=== PATIENT | female | born 1960 | race Caucasian/White ===

== ENCOUNTER 2019-04-10 11:49 | Day surgery (SDC) | payer BC ==
[~2019-04-10] VITALS: Ht 152.4 cm; Wt 82.0 kg
[~2019-04-10 11:49] MED LIST: ATOR80TA59 PO; CETI5SOL3 PO; ECOT81TA5 PO; ESCI5SOL3 PO; ESTR1TAB PO; LANS15CA PO; LEVO75TA4 PO; LR 1,000 ML IV ONE; PLAV1TAB2 PO; ceFAZolin SOD 1 GM in D5W MINI-BAG PLUS 50 ML IV ONE
[2019-04-10] MEDS ORDERED: LIDOCAINE 1% SDV INJ 30 ML VIAL As Ordered ONE (13:26)
[2019-04-10] MEDS ORDERED: PROPOFOL 200 MG/20 ML VIAL As Ordered ONE (13:30)
[2019-04-10] MEDS ORDERED: MIDAZOLAM INJ 2 MG/2 ML VIAL (J2250) As Ordered ONE (13:30)
[2019-04-10] MEDS ORDERED: ONDANSETRON 4MG/2ML VIAL (J2405) As Ordered ONE (13:30)
[2019-04-10] MEDS ORDERED: LIDOCAINE 2% INJ 100 MG/5 ML SDV (FOR ANES.) As Ordered ONE (13:30)
[2019-04-10] MEDS ORDERED: fentaNYL 100 MCG/2 ML INJECTION (J3010) As Ordered ONE (13:30)
--- NOTE | 2019-04-10 15:45 | RO ---
DATE OF PROCEDURE: 04/10/2019 PREOPERATIVE DIAGNOSIS: Cryptogenic stroke. POSTOPERATIVE DIAGNOSIS: Cryptogenic stroke. FINDINGS: Cryptogenic stroke. OPERATIVE PROCEDURE: Implantation of a Medtronic LINQ implantable loop recorder. SURGEON: Sylvester Brasher MD [employer]PER[employer] TRA[employer] [facility]FORMATION CENTER: None. ANESTHESIA: Lidocaine 1% local (3 mL)/monitored anesthetic care. SPECIMENS: None. ESTIMATED BLOOD LOSS: Less than 1 mL. BLOOD PRODUCTS REPLACED: None. DRAINS: None. COMPLICATIONS: None. DESCRIPTION OF OPERATION: The patient was prepped over the left anterior chest and sternum. Lidocaine 1% was used for local anesthetic. An incision approximately 1 cm in length was made with a #15 scalpel blade through the skin about 1 inch lateral to the left parasternal border at about the midpoint of the left parasternal border. The guide on the insertion tool was placed into the incision and advanced in approximately 45 degree left lateral/caudal direction keeping the guide parallel to the anterior chest wall. The insertion tool was rotated 180 degrees. The plunger was then used to advance the implantable loop recorder into the subcutaneous fat/breast tissue. The plunger was removed and then the insertion tool was removed. The initial R wave amplitude was 0.44 milliseconds. P waves were readily identified as well. Next, a single #2-0 Vicryl suture was used to approximate the deep layer of the incision. This resulted in excellent approximation of the skin edges. It had been in my initial plan to use a #4-0 Biosyn suture to approximate the subcuticular layer; however this was not necessary because the approximation was so good with the #2-0 Vicryl. Next, three layers of Dermabond was applied. Patient tolerated the procedure well without any immediate complications. The implantable loop recorder implanted was a Medtronic Reveal LINQ, model #LNQ11 with serial #[id number]. [facility]
[2019-04-10 15:50] VITALS: BP 132/59
== END 2019-04-10 16:10 | disposition home or self-care (01) ==
LOC: M SDC 11:49
PROVIDERS: ATTEND Internal Medicine Cardiovascular Disease
DX: I63.9 Cerebral infarction, unspecified (principal); E66.9 Obesity, unspecified; E78.00 Pure hypercholesterolemia, unspecified; E03.9 Hypothyroidism, unspecified; K21.9 Gastro-esophageal reflux disease without esophagitis; G43.909 Migraine, unspecified, not intractable, without status migrainosus; R42 Dizziness and giddiness; R20.2 Paresthesia of skin; I69.998 Other sequelae following unspecified cerebrovascular disease; Z79.899 Other long term (current) drug therapy; Z79.01 Long term (current) use of anticoagulants; Z90.710 Acquired absence of both cervix and uterus
CPT/HCPCS: 33285; C1764; J0690; J2250; J2405; J3010

== ENCOUNTER 2019-04-11 12:47 | Day surgery (SDC) | payer BC ==
[~2019-04-11] VITALS: Ht 152.4 cm; Wt 82.1 kg
[~2019-04-11 12:47] MED LIST changes: +LIDOCAINE 2% INJ 100 MG/5 ML SDV (FOR ANES.) As Ordered ONE; -LR 1,000 ML IV ONE; +PROPOFOL 200 MG/20 ML VIAL As Ordered ONE; -ceFAZolin SOD 1 GM in D5W MINI-BAG PLUS 50 ML IV ONE
[2019-04-11] MEDS: NS 1,000 ML IV SCH ×2 (13:30→13:38)
[2019-04-11] MEDS ORDERED: MIDAZOLAM INJ 2 MG/2 ML VIAL (J2250) As Ordered ONE ×2 (14:01→14:49)
[2019-04-11] MEDS ORDERED: MIDAZOLAM INJ 2 MG/2 ML VIAL (J2250) IV ONE ×2 (14:07→14:10)
[2019-04-11] MEDS ORDERED: LIDOCAINE VISCOUS 2% SOLN 15ML UDC As Ordered ONE (14:33)
[2019-04-11 14:45] VITALS: BP 130/61
--- NOTE | 2019-04-11 16:17 | T-ECHO ---
DATE OF PROCEDURE: 04/11/2019 REFERRING PHYSICIAN: Dr. Sylvester Brasher INDICATION: Cryptogenic stroke. PREPROCEDURE DIAGNOSIS: Cryptogenic stroke. POSTPROCEDURE DIAGNOSIS: Cryptogenic stroke, patent foramen ovale. PROCEDURE PERFORMED: Transesophageal echocardiogram with bubble study. PROCEDURE PERFORMED BY: Sylvester Brasher MD SUPPLY CHAIN TECHNICIAN: None. IV SEDATION: Midazolam 4 mg IV. COMPLICATIONS: None. PROCEDURE DESCRIPTION: Rhythm was sinus. Patient received viscous Lidocaine to gargle at the start of the procedure. She received a total of 4 mg of midazolam IV for IV sedation. Esophageal intubation was accomplished without difficulty using a Ngozi three-dimensional transesophageal echocardiogram probe. The left and right ventricles appeared normal in size and systolic function and without regional wall motion abnormalities. The atria did not appear to be enlarged. No masses or thrombi were seen within the atria or their appendages. Anatomically, the intraatrial septum was suspicious for presence of a patent foramen ovale, and this was confirmed by a small amount of shunt flow by color flow Doppler and further confirmed with mild to moderate amount of bubble shunting from right atrium to left atrium via the patent foramen ovale (PFO) with Valsalva maneuver during the bubble study. A single bubble study was performed using 1 mL of the patient's own blood withdrawn from the IV site combined with 1 mL of air and 8 mL of injectable normal saline, which was injected via an antecubital vein in the right upper extremity. Prior to this mixture being injected, it was agitated back and forth between two 10 mL syringes interconnected by a three-way stopcock. No pericardial effusion. Aortic valve was 3-cusp and displayed mild focal thickening and focal calcific deposits. Mild aortic regurgitation was present. Mitral leaflets were structurally and functionally normal. Very mild mitral regurgitation within normal limits was present. Pulmonic valve was normal and without regurgitation. Tricuspid leaflets were normal with very mild tricuspid regurgitation. The distal aortic arch and descending thoracic aorta demonstrated some patchy areas of mild atherosclerosis (mild plaque). CONCLUSIONS: 1. Patent foramen ovale with positive bubble study demonstrating shunting from right atrium to left atrium, which is judged to be mild to moderate in severity. 2. Very mild aortic valve sclerosis with a 3-cusp aortic valve. Mild aortic regurgitation. 3. Mild atherosclerotic plaque in the distal aortic arch. 4. Normal left and right ventricle size and systolic function. Left ventricular ejection fraction (LVEF) 65% by visual estimate. Following completion of the procedure, I spoke with the patient's who was present at the bedside, as well as with the patient who is alert and awake and I showed them the TE image showing the bubbles crossing from the right atrium to the left atrium via the PFO. Patent foramen ovale was explained. I explained that an option for the patient would be to have device closure of the PFO, which can be performed at [facility] in [place]. They were agreeable to this. My plan is to refer the patient to Dr. Ty Rankin in [place] for PFO closure.
== END 2019-04-11 15:02 | disposition home or self-care (01) ==
LOC: M OPP 12:47
PROVIDERS: ATTEND Internal Medicine Cardiovascular Disease
DX: I63.429 Cerebral infarction due to embolism of unspecified anterior cerebral artery (principal); E78.5 Hyperlipidemia, unspecified; E66.09 Other obesity due to excess calories; Q24.9 Congenital malformation of heart, unspecified; Z68.35 Body mass index [BMI] 35.0-35.9, adult; Z79.82 Long term (current) use of aspirin; Z79.899 Other long term (current) drug therapy
CPT/HCPCS: 93312; 93320; 93325; J2250

== ENCOUNTER 2021-03-26 13:13 | Day surgery (SDC) | payer BC ==
[~2021-03-26] VITALS: Ht 152.4 cm; Wt 87.0 kg
[~2021-03-26 13:13] MED LIST changes: +LIDOCAINE 1% SDV 30ML VIAL As Ordered ONE; +LIDOCAINE 2% 100MG/5ML SDV (FOR ANES.) As Ordered ONE; -LIDOCAINE 2% INJ 100 MG/5 ML SDV (FOR ANES.) As Ordered ONE; +LIDOCAINE 2% INJ 100 MG/5 ML SYRINGE As Ordered ONE; +LR 1,000 ML IV ONE; +MIDAZOLAM INJ 2MG/2ML VIAL (J2250 PER 1MG) As Ordered ONE; +ONDANSETRON 4MG/2ML VIAL As Ordered ONE; -PROPOFOL 200 MG/20 ML VIAL As Ordered ONE; +ceFAZolin SOD 1 GM in D5W MINI-BAG PLUS 50 ML IV ONE; +dexameTHASONE 4 MG/ML 1ML VIAL (J1100 PER 1MG) As Ordered ONE; +fentaNYL 100 MCG/2 ML INJECTION (J3010) As Ordered ONE; +propofoL 200 MG/20 ML VIAL As Ordered ONE
[2021-03-26] MEDS ORDERED: ceFAZolin SOD 1 GM in D5W MINI-BAG PLUS 50 ML IV ONE ×2 (14:00→14:15)
[2021-03-26] MEDS ORDERED: LIDOCAINE 1% SDV 30ML VIAL As Ordered ONE (14:04)
[2021-03-26] MEDS ORDERED: ceFAZolin SOD 2 GM in IV 1 EA IV ONE (14:10)
[2021-03-26 16:42] VITALS: BP 125/66
--- NOTE | 2021-03-27 08:37 | RO ---
OPERATIVE NOTE DATE OF OPERATION: 03/26/2021 PREOPERATIVE DIAGNOSIS: Subcutaneous cardiac rhythm monitor. POSTOPERATIVE DIAGNOSIS: Subcutaneous cardiac rhythm monitor. FINDINGS: Subcutaneous cardiac rhythm monitor. PROCEDURE PERFORMED: Explantation of subcutaneous cardiac rhythm monitor (Medtronic). SURGEON: Sylvester Brasher M.D. SOUS CHEF: None. ANESTHESIA: Lidocaine 1% local/monitored anesthetic care. SPECIMENS: Medtronic subcutaneous cardiac rhythm monitor. ESTIMATED BLOOD LOSS: Less than 1 mL. BLOOD PRODUCTS REPLACED: None. DRAINS: None. COMPLICATIONS: None. PROCEDURE DESCRIPTION: Patient was prepped and draped over the sternum and left anterior chest. Lidocaine 1% was used for local anesthetic. An incision approximately 1 cm in length was made parallel to and just caudal to the original loop recorder incision. This incision was made with a 15 blade. The loop recorder was grabbed with a snap and was successfully removed from the pocket. A single 2-0 Vicryl suture was used to close the deep layer of the incision. 4-0 Biosyn was used temporarily as a continuous subcutaneous stitch with the free ends of the incision protruding 1 cm from both ends of the incision line through the skin. Two layers of Dermabond were applied. The Biosyn suture was then pulled through the incision line and removed entirely. The patient tolerated the procedure well without any immediate complications.
== END 2021-03-26 16:43 | disposition home or self-care (01) ==
LOC: M SDC 13:13
PROVIDERS: ATTEND Internal Medicine Cardiovascular Disease
DX: Z45.09 Encounter for adjustment and management of other cardiac device (principal); E78.00 Pure hypercholesterolemia, unspecified; Z86.73 Personal history of transient ischemic attack (TIA), and cerebral infarction without residual deficits; E03.9 Hypothyroidism, unspecified; K21.9 Gastro-esophageal reflux disease without esophagitis; Z86.16 Personal history of COVID-19; Z79.899 Other long term (current) drug therapy; G43.909 Migraine, unspecified, not intractable, without status migrainosus; Z91.010 Allergy to peanuts
CPT/HCPCS: 33286; J0690; J1100; J2250; J2405; J3010; U0002